=== PATIENT | female | born 1985 | race Caucasian/White ===

== ENCOUNTER 2017-03-01 19:45 | Emergency (ER) | payer BC, OTHER ==
[~2017-03-01] VITALS: Ht 160 cm; Wt 90.0 kg
[~2017-03-01 19:45] MED LIST: ALBU8.5H5 IH; HYDR-3498 PO; IBUP-1542 PO; PREN-39 PO
[2017-03-01 19:53] VITALS: Ht 160 cm; Wt 90.0 kg
[2017-03-01] MEDS ORDERED: ONDANSETRON (ODT) 4 MG TAB ODT STA (20:40)
[2017-03-01] MEDS ORDERED: HYDROmorphONE 1 MG/ML SYG IM STA (20:40)
[2017-03-01] MEDS ORDERED: METH750T93 PO (20:42)
[2017-03-01] MEDS ORDERED: PRED20TA PO (20:42)
[2017-03-01] MEDS ORDERED: HYDR-902 PO (20:42)
--- NOTE | 2017-03-01 20:46 | ERD ---
ER Documentation Chief Complaint Date/Time DATE: 03/01/17 TIME: 20:44 Chief Complaint c/o lower back pain with spasms. Worse today. (+) ambulatory. HPI This is a 51-year-old female who is complaining of low back pain. The patient was bending over with her 2-year-old with a 2-year-old jumped up and grabbed onto her and pulled mom forward while she was already bent over causing some sharp pain in her low back. This occurred 3 days ago. There is no radiculopathy down the legs no numbness weakness no loss of bowel or bladder. The pain described as sharp worse with standing better with sitting. ROS All systems reviewed and are negative except as per history of present illness. Medications Home Meds Active Scripts Prednisone* (Prednisone*) 20 Mg Tab, 60 MG PO DAILY for 5 Days, TAB Prov:RANDY ALCANTAR DO 03/01/17 Methocarbamol* (Robaxin*) 750 Mg Tablet, 750 MG PO TID, #20 TAB Prov:RANDY ALCANTAR DO 03/01/17 Hydrocodone/Acetaminophen ([place] 10-325 Tablet) 1 Each Tablet, 1 TAB PO Q6H Y for PAIN, #20 TAB Prov:RANDY ALCANTAR DO 03/01/17 Ibuprofen* (Motrin*) 600 Mg Tab, 600 MG PO Q6, #30 TAB Prov:LADARIUS MCRAE PA-C 03/30/16 Hydrocodone Bit-Acetaminophen* ([place]*) 5-325 Mg Tab, 1 TAB PO Q6 Y for PAIN, # 12 TAB Prov:LADARIUS MCRAE PA-C 03/30/16 Reported Medications Albuterol Sulfate* (Albuterol Sulfate* HFA) 8.5 Gm Hfa.aer.ad, 2 PUFF IH Q6, EA 02/22/14 Vits W-Ca,Fe,Fa(<1MG) ( Vitamins) 1 Tab Tablet, 1 TAB PO DAILY 02/22/14 Allergies Allergies: Coded Allergies: cephalexin (Verified Allergy, Severe, THROAT AND FACIAL SWELLING. , 03/24/16 ) clindamycin (Verified Adverse Reaction, Severe, 03/24/16) ITCHING gentamicin (Verified Adverse Reaction, Severe, 03/24/16) ITCHING PMhx/Soc History of Surgery: Yes (D and C, SALPINGECTOMY, CHOLECYSTECTOMY) Anesthesia Reaction: No Hx Neurological Disorder: No Hx Respiratory Disorders: No Hx Cardiac Disorders: No Hx Psychiatric Problems: No Hx Miscellaneous Medical Probl: Yes (asthma, ECTOPIC ) Hx Alcohol Use: No Hx Substance Use: No Hx Tobacco Use: No Smoking Status: Never smoker FmHx Family History: No coronary disease Physical Exam Vitals Vital Signs Date Time Temp Pulse Resp B/P Pulse Ox O2 Delivery O2 Flow Rate FiO2 03/01/17 19:53 98.7 102 18 137/69 97 Physical Exam Const: Well-developed, well-nourished Head: Atraumatic, normocephalic Eyes: Normal Conjunctiva, PERRLA, EOMI, normal sclera, no nystagmus ENT: Normal External Ears, Nose and Mouth, moist mucus membranes. Neck: Full range of motion. No meningismus, no lymphadenopathy. Resp: Clear to auscultation bilaterally, no wheezing, rhonchi, rales Cardio: Regular rate and rhythm, no murmurs, S1 S2 present Abd: Soft, non tender x 4, non distended. Normal bowel sounds, no guarding or rebound, no pulsitile abdominal masses or bruits Skin: No petechiae or rashes, no ecchymosis , no maculopapular rash Back: No midline bilateral lower paraspinal muscular tenderness pain with movement pain with palpation negative straight leg test bilaterally Ext: No cyanosis, or edema, FROM x 4, normal inspection, neurovascularly intact x 4 Neur: Awake and alert, STR 5/5 x 4, sensation intact x 4, no focal findings, cerebellum intact Psych: Normal Mood and Affect Procedures/MDM IM Dilaudid, Solu-Medrol and Zofran ODT patient says she has been returning home Departure Diagnosis: Primary Impression: Back pain Back pain location: low back pain Chronicity: acute Back pain laterality: bilateral Sciatica presence: without sciatica Qualified Code: M54.5 - Acute bilateral low back pain without sciatica Condition: Stable Patient Instructions: Back Pain (Acute Or Chronic) Referrals: HARPREET GOYAL (PCP) RANDY ALCANTAR DO Mar 01, 2017 20:45
[2017-03-01] MEDS ORDERED: METHYLPREDNISOLONE 125 MG INJ IM ONE (21:00)
[2017-03-01] MEDS ORDERED: ONDA4TAB14 PO (21:10)
== END 2017-03-01 21:17 | disposition home or self-care (01) ==
LOC: FTE 19:45
DX: M54.5 Low back pain (principal); J45.909 Unspecified asthma, uncomplicated
CPT/HCPCS: 96372; 99284; J1170; J2930